=== PATIENT | female | born 1990 | race Caucasian/White ===

== ENCOUNTER 2023-03-09 09:05 | Outpatient (CLI) | payer OTHER, SELFPAY ==
--- NOTE | ~2023-03-09 | CT_ITS ---
CT ANGIOGRAM NECK AND HEAD History: Syncope, posterior circulation insufficiency. Technique: Axial noncontrast imaging of the brain was performed. Serial spiral axial images through t he head and neck were then obtained during arterial phase IV injection of 100 cc of Omnipaque 350. 3- D postprocessing and MIP images were then reconstructed on the remote workstation. Dose reduction opal hnique was used on this scan by utilizing automated exposure control and iterative reconstruction opal hnique. The dose-length product (DLP) was 1684.76 mGy-cm. CTA neck findings: Bilateral vertebral arteries are patent. Bilateral common carotid, internal carot id, external carotid arteries are patent. No large vessel occlusion. No stenosis or aneurysm. The pro ximal right internal carotid artery demonstrates 0% stenosis relative to the normal distal artery lum en diameter. The proximal left internal carotid artery demonstrates 0% stenosis relative to the nuvia l distal artery lumen diameter. CTA head findings: Distal vertebral arteries, basilar artery, and posterior cerebral arteries are pat ent. Distal internal carotid arteries, middle cerebral arteries, and anterior cerebral arteries are p atent. No large vessel occlusion. No stenosis or aneurysm. Axial noncontrast imaging of the brain is unremarkable. No acute infarct, intracranial hemorrhage, or mass lesion seen. Ventricles and subarachnoid spaces are unremarkable. Shi-white differentiation is preserved. Paranasal sinuses and mastoid air cells are clear. Impression: No significant abnormality seen. Reviewed, dictated and finalized at location . Impression: No significant abnormality seen.
[2023-03-09 09:31] LABS: Estimated Glomerular Filt Rate 58
== END 2023-03-09 09:06 | disposition home or self-care (01) ==
PROVIDERS: PCP Nurse Practitioner Family; Visit Provider Student in an Organized Health Care Education/Training Program
DX: R55 Syncope and collapse (principal); I49.8 Other specified cardiac arrhythmias
CPT/HCPCS: 70496; 70498; Q9967

== ENCOUNTER 2023-09-13 07:58 | Outpatient (CLI) | payer OTHER, SELFPAY ==
--- NOTE | ~2023-09-13 | CT_ITS ---
EXAMINATION: CT abdomen pelvis wo/w con DATE: 09/13/2023 08:41 INDICATION: UTI. TECHNIQUE: Computed tomography (CT) of the abdomen and pelvis was performed without intravenous contr ast. The dose-length product was 599.35 mGy-cm. Automated exposure control and iterative reconstructi on technique were employed. COMPARISON: None. FINDINGS: Lung bases are unremarkable. Heart size normal. There are breast implants. Small pericardia l effusion. No significant pleural effusion. No significant vascular abnormality. There are gallstone s. The spleen, pancreas, adrenal glands and kidneys are unremarkable. Nonobstructive bowel gas patter n. Moderate colonic fecal loading. No free air or free fluid. Nonobstructive bowel pattern. No acute osseous abnormality. IMPRESSION: 1. Cholelithiasis. 2: Small pericardial effusion. Reviewed, dictated and finalized at location L.
[2023-09-13 08:25] LABS: Estimated Glomerular Filt Rate 40
== END 2023-09-13 07:59 | disposition home or self-care (01) ==
PROVIDERS: PCP Nurse Practitioner Family; Visit Provider Urology
DX: N39.0 Urinary tract infection, site not specified (principal); K80.20 Calculus of gallbladder without cholecystitis without obstruction; I31.39 Other pericardial effusion (noninflammatory)
CPT/HCPCS: 74178; Q9967

== ENCOUNTER 2024-04-04 08:50 | Outpatient (CLI) | payer OTHER, SELFPAY ==
--- NOTE | 2024-04-14 11:42 | P.NEURO_ITS ---
Neurology EEG Report General Information Date of Study: 04/04/24 TEST Electroencephalogam DIAGNOSIS syncope CONDITION OF RECORDING neurodiagnostic lab EEG NUMBER [id number] CLINICAL HISTORY syncope EEG DESCRIPTION During wakefulness the background activity consists of posterior dominant alpha rhythm at 8 hertz with an amplitude of 20-40 microvolts which appears well- formed and reactive to eye opening. Anteriorly low amplitude mixed frequency activity was seen. There is a good anteroposterior gradient. Hyperventilation was performed for 3 minutes during which no significant abnormal background changes were seen. Photic stimulation was performed during which no abnormal changes were seen. Stage I and 2 sleep were recorded during which vertex waves sleep spindles and K complexes were seen. IMPRESSION This is a normal EEG obtained during awake and sleep states.
== END 2024-04-04 08:51 | disposition home or self-care (01) ==
LOC: ANHNEURO 08:51
PROVIDERS: PCP Nurse Practitioner Family; Visit Provider Psychiatry & Neurology Neurology
DX: R55 Syncope and collapse (principal); G43.909 Migraine, unspecified, not intractable, without status migrainosus; Z87.828 Personal history of other (healed) physical injury and trauma
CPT/HCPCS: 95816

== ENCOUNTER 2024-04-08 09:43 | Outpatient (CLI) | payer OTHER, SELFPAY ==
--- NOTE | ~2024-04-08 | MR_ITS ---
EXAMINATION: MR brain/brain stem wo/w con DATE: 04/08/2024 11:00 INDICATION: Multiple sclerosis. TECHNIQUE: Magnetic resonance imaging (MRI) of the brain and brainstem was performed without and with 10 mL MultiHance intravenous contrast. COMPARISON: Head CT 03/09/2023 FINDINGS: There are greater than 10 total lesions of increased T2-weighted signal intensity in the br ain. Of these lesions, multiple are periventricular, multiple are juxtacortical, and none are infrate ntorial. None of the lesions enhance. There is no acute ischemic infarct or intracranial hemorrhage. The ventricles are normal in size. There is mild mucosal thickening in the paranasal sinuses. The orb its are normal. The mastoid air cells are normal. IMPRESSION: 1. Mild cerebral white matter disease, consistent with multiple sclerosis. Reviewed, dictated and finalized at location A.
--- NOTE | 2024-04-10 12:25 | WPDNEUROLOGY ---
Neurology EEG Report General Information Date of Study: 04/04/24 TEST electroencephalogram DIAGNOSIS syncope CONDITION OF RECORDING neurodiagnostic lab EEG NUMBER [id number] CLINICAL HISTORY history of syncope EEG DESCRIPTION during wakefulness the background activity consists of posterior dominant alpha rhythm at 8 hertz with an amplitude of 20-40 microvolts which appears moderately formed and reactive to eye opening. Anteriorly low amplitude mixed frequency activity was seen. There is a good anteroposterior gradient. Hyperventilation was performed for 3 minutes during which no significant abnormal background changes were seen. stage I and 2 sleep were recorded during which vertex waves sleep spindles and K complexes were seen. Photic stimulation was performed during which no significant abnormal background changes were seen. No abscess year old driving response was seen. IMPRESSION this is a normal EEG obtained during awake and sleep states.
== END 2024-04-08 09:44 | disposition home or self-care (01) ==
PROVIDERS: PCP Internal Medicine; Visit Provider Psychiatry & Neurology Neurology
DX: R90.82 White matter disease, unspecified (principal); G35 Multiple sclerosis
CPT/HCPCS: 70553; A9577